=== PATIENT | female | born 1985 | race Two or more races ===

== ENCOUNTER 2019-03-25 01:46 | Emergency (ER) | payer MEDICAID ==
[~2019-03-25] VITALS: Ht 157.5 cm; Wt 105.2 kg
[2019-03-25] MEDS ORDERED: ONDANSETRON HCL 4 MG/2 ML VIAL IV ONE (02:15)
[2019-03-25] MEDS ORDERED: MORPHINE SULFATE 4 MG/ML SYR/VIAL IV ONE (02:15)
[2019-03-25 02:37] LABS: Basophils # (auto) 0.1 uL; Basophils % (auto) 0.7 % (0.0-2.0); Eosinophils # (auto) 0.2 uL; Eosinophils % (auto) 2.4 % (0.0-7.0); Hematocrit 37.5 % (36.0-46.0); Hemoglobin 12.6 g/dL (12.2-16.2); Lymphocytes % (auto) 41.5 % (10.0-50.0); Mean Corpuscular Hemoglobin 30.4 pg (28.0-32.0); Mean Corpuscular Hgb Conc. 33.7 g/dL (32.0-36.0); Mean Corpuscular Volume 90.2 fL (80.0-100.0); Monocytes # (auto) 0.7 uL; Neutrophils # (auto) 4.6 uL; Neutrophils % (auto) 48.4 % (37.0-80.0); Nucleated Red Blood Cells % 0.1 %; Platelet Count (auto) 237 10^3/uL (140-450); Red Blood Cells 4.15 10^6/uL (4.0-5.20); Red Cell Distribution Width 13.6 % (11.8-14.3); White Blood Cell 9.5 10^3/uL (4.4-10.8)
[2019-03-25 02:59] LABS: Albumin 3.2 g/dL (3.4-5.0); Calcium 8.7 mg/dL (8.5-10.1); Potassium 3.4 mmol/L (3.5-5.1)
[2019-03-25] MEDS ORDERED: MORPHINE SULF INJ 2 MG/ML SYRINGE 1ML IV ONE (03:00)
[2019-03-25 03:01] LABS: BUN/Creatinine Ratio 16.7
[2019-03-25 03:04] LABS: Bilirubin, Total 0.2 mg/dL (0.2-1.0)
[2019-03-25] MEDS ORDERED: SODIUM CHLORIDE 0.9% 1,000 ML IV ONE (03:15)
[2019-03-25 07:30] VITALS: BP 148/99
== END 2019-03-25 07:47 | disposition home or self-care (01) ==
LOC: ER 01:50
DX: O36.4XX0 Maternal care for intrauterine death, not applicable or unspecified (principal); O20.8 Other hemorrhage in early pregnancy; Z3A.08 8 weeks gestation of pregnancy
CPT/HCPCS: 36415; 76801; 80053; 84702; 85025; 96374; 96375; 99284; J2270; J2405; J7030

== ENCOUNTER 2023-01-27 19:51 | Inpatient (IN) | payer MEDICAID ==
[~2023-01-27] VITALS: Ht 157.5 cm; Wt 104.7 kg
[2023-01-27 21:17] LABS: Basophils # (auto) 0 10 ^3/uL (0-0.2); Basophils % (auto) 0.5 % (0.0-2.0); Eosinophils # (auto) 0.2 10 ^3/uL (0-0.8); Eosinophils % (auto) 2.3 % (0.0-7.0); Hematocrit 37.8 % (36.0-46.0); Mean Corpuscular Hemoglobin 30.5 pg (28.0-32.0); Mean Corpuscular Hgb Conc. 34.3 g/dL (32.0-36.0); Mean Corpuscular Volume 88.8 fL (80.0-100.0); Monocytes # (auto) 0.7 10 ^3/uL (0-1.3); Monocytes % (auto) 7.5 % (0.0-12.0); Neutrophils # (auto) 5.4 10 ^3/uL (1.6-8.6); Neutrophils % (auto) 57.7 % (37.0-80.0); Red Blood Cells 4.25 10^6/uL (4.0-5.20); Red Cell Distribution Width 13.2 % (11.8-14.3); White Blood Cell 9.4 10^3/uL (4.4-10.8)
[2023-01-27 21:24] LABS: Urine Bacteria NONE SEEN /hpf (None Seen); Urine Blood Negative /uL (Negative); Urine Specific Gravity 1.016 (1.001-1.035); Urine WBC 1 /hpf (0 - 5)
[2023-01-27 21:30] LABS: Albumin 3.5 g/dL (3.4-5.0); Calcium 9.1 mg/dL (8.5-10.1); Potassium 3.6 mmol/L (3.5-5.1)
[2023-01-27 21:33] LABS: BUN/Creatinine Ratio 19.7 (10.0-20.0); Bilirubin, Total 0.2 mg/dL (0.2-1.0); Total Protein 7.7 g/dL (6.4-8.2)
[2023-01-27] MEDS ORDERED: PIPERACILLIN-TAZOB 3.375GM 100 ML IV ONE (21:45)
[2023-01-27] MEDS ORDERED: fentaNYL CITRATE 100 MCG/2 ML VL IV ONE (22:00)
[2023-01-27] MEDS ORDERED: LABE200T6 PO (22:51)
[2023-01-27] MEDS ORDERED: DEXTROSE (50%) 50ML SYRG IV PRN (23:00)
[2023-01-27 23:41] LABS: INR 0.94 (0.9-1.15)
[2023-01-28] MEDS: LACTATED RINGER'S 1,000 ML IV SCH ×3 (02:05→19:00)
[2023-01-28 02:13] VITALS: BP 126/80
[2023-01-28 02:21] VITALS: BP 126/80
[2023-01-28] MEDS: ACCU-CHEK COMFORT CURVE STRIP VI SCH ×4 (02:38→18:00)
[2023-01-28 05:00] VITALS: BP 136/71
[2023-01-28] MEDS: metroNIDAZOLE 500MG/100ML 100 ML IV SCH ×3 (05:28→21:49)
[2023-01-28] MEDS: InsuLIN REG 1unit/0.01ml Soln (100units/ml) SC SCH ×4 (05:28→18:00)
[2023-01-28 05:32] LABS: Basophils # (auto) 0.1 10 ^3/uL (0-0.2); Basophils % (auto) 1.2 % (0.0-2.0); Eosinophils # (auto) 0.2 10 ^3/uL (0-0.8); Eosinophils % (auto) 2.6 % (0.0-7.0); Hematocrit 39.7 % (36.0-46.0); Hemoglobin 13.4 g/dL (12.2-16.2); Lymphocytes # (auto) 2.9 10 ^3/uL (0.4-5.4); Mean Corpuscular Hemoglobin 30.4 pg (28.0-32.0); Mean Corpuscular Hgb Conc. 33.7 g/dL (32.0-36.0); Mean Corpuscular Volume 90.3 fL (80.0-100.0); Monocytes # (auto) 0.5 10 ^3/uL (0-1.3); Monocytes % (auto) 6.6 % (0.0-12.0); Neutrophils # (auto) 3.9 10 ^3/uL (1.6-8.6); Neutrophils % (auto) 51.6 % (37.0-80.0); Nucleated Red Blood Cells % 0.1 %; Red Cell Distribution Width 13.2 % (11.8-14.3); White Blood Cell 7.6 10^3/uL (4.4-10.8)
[2023-01-28 05:50] LABS: Albumin 3.7 g/dL (3.4-5.0); Calcium 8.5 mg/dL (8.5-10.1); Potassium 3.6 mmol/L (3.5-5.1)
[2023-01-28 05:56] LABS: BUN/Creatinine Ratio 21.4 (10.0-20.0); Bilirubin, Total 0.3 mg/dL (0.2-1.0); Total Protein 6.7 g/dL (6.4-8.2)
[2023-01-28 09:00] VITALS: BP 108/46
[2023-01-28] MEDS ORDERED: SUCCINYLCHOLINE CHLORIDE 20 MG/ML 10ML VIAL IV ONE (09:26)
[2023-01-28] MEDS ORDERED: BUPIVACAINE 0.25% INJ 50ML VIAL ONE (09:26)
[2023-01-28] MEDS ORDERED: LIDOCAINE 2% JELLY 11ml (GLYDO) ONE (09:27)
[2023-01-28] MEDS: PANTOPRAZOLE 40 MG/10 ML VIAL INJ IV SCH (10:00)
[2023-01-28] MEDS: LABETALOL HCL 200 MG TAB PO SCH ×2 (10:00→22:00)
[2023-01-28] MEDS ORDERED: fentaNYL CITRATE 100 MCG/2 ML VL ONE (10:14)
[2023-01-28] MEDS ORDERED: MIDAZOLAM HCL 2MG/2ML 2ml VIAL (1mg/ml) ONE (10:14)
[2023-01-28] MEDS ORDERED: MEPERIDINE HCL (50 MG/ML) 1 ML VIAL ONE (10:15)
[2023-01-28] MEDS ORDERED: ONDANSETRON HCL 4 MG/2 ML VIAL IV PRN (10:45)
[2023-01-28] MEDS ORDERED: MORPHINE SULFATE 4 MG/ML SYR/VIAL IV PRN (10:45)
[2023-01-28] MEDS ORDERED: LABETALOL HCL 5 MG/ML 4ML SYRINGE IV PRN (10:45)
[2023-01-28] MEDS ORDERED: MIDAZOLAM HCL 2MG/2ML 2ml VIAL (1mg/ml) IV PRN (10:45)
[2023-01-28] MEDS ORDERED: ePHEDrine SULFATE 50 MG/ML AMP IV PRN (10:45)
[2023-01-28] MEDS ORDERED: DexAMETHasone SOD PHOS 10MG/1ML VIAL INJ ONE (11:29)
[2023-01-28] MEDS ORDERED: PROPOFOL 10 MG/ML 20 ML IV ONE (11:29)
[2023-01-28] MEDS ORDERED: SUGAMMADEX 200mg/2ml Vial (100MG/ML) IV ONE (11:45)
[2023-01-28] MEDS: HYDROmorphone HCL 2 MG/ML VL/or syr IV PRN ×3 (12:13→13:00)
[2023-01-28] MEDS ORDERED: cefTRIAXone 1GM/50ML D5W 50 ML IV ONE (14:00)
[2023-01-28] MEDS: MORPHINE SULFATE INJ 2 MG/ml SYRG IV PRN ×2 (15:43→21:25)
[2023-01-28 16:35] VITALS: BP 110/66
[2023-01-28 22:00] VITALS: BP 139/75
[2023-01-29] MEDS: ACCU-CHEK COMFORT CURVE STRIP VI SCH ×3 (00:19→11:42)
[2023-01-29] MEDS: InsuLIN REG 1unit/0.01ml Soln (100units/ml) SC SCH ×3 (00:20→11:43)
[2023-01-29 05:00] VITALS: BP 119/65
[2023-01-29] MEDS: LACTATED RINGER'S 1,000 ML IV SCH (05:00)
[2023-01-29] MEDS: metroNIDAZOLE 500MG/100ML 100 ML IV SCH ×2 (05:33→13:30)
[2023-01-29] MEDS: MORPHINE SULFATE INJ 2 MG/ml SYRG IV PRN ×2 (05:49→12:48)
[2023-01-29 09:00] VITALS: BP 122/79
[2023-01-29] MEDS ORDERED: cefTRIAXone 1GM/50ML D5W 50 ML IV SCH (09:00)
[2023-01-29] MEDS: PANTOPRAZOLE 40 MG/10 ML VIAL INJ IV SCH (09:45)
[2023-01-29] MEDS: LABETALOL HCL 200 MG TAB PO SCH (09:45)
[2023-01-29] MEDS ORDERED: MET500T PO (10:54)
[2023-01-29] MEDS ORDERED: HYDR2TAB58 PO (10:54)
[2023-01-29] MEDS ORDERED: LEVO500T91 PO (10:54)
[2023-01-29 13:00] VITALS: BP 122/71
[2023-01-29 14:26] VITALS: BP 122/71
== END 2023-01-29 16:06 | disposition home or self-care (01) | DRG 234 ==
LOC: ER 19:55 → OVERFLOW 22:51 → WEST WING 01-28 01:40
PROVIDERS: ADMIT Nurse Practitioner Family; ATTEND Family Medicine
PROC: 0DTJ4ZZ Resection of Appendix, Percutaneous Endoscopic Approach (ICD-10-PCS; principal; 2023-01-28 10:45)
DX: K35.80 Unspecified acute appendicitis (principal); E11.9 Type 2 diabetes mellitus without complications; E66.01 Morbid (severe) obesity due to excess calories; N20.0 Calculus of kidney; I10 Essential (primary) hypertension; K38.1 Appendicular concretions; N83.209 Unspecified ovarian cyst, unspecified side; E86.0 Dehydration; Z82.49 Family history of ischemic heart disease and other diseases of the circulatory system; Z83.3 Family history of diabetes mellitus; Z88.6 Allergy status to analgesic agent; Z91.199 Patient's noncompliance with other medical treatment and regimen due to unspecified reason; Z71.3 Dietary counseling and surveillance; Z68.41 Body mass index [BMI] 40.0-44.9, adult
CPT/HCPCS: 36415; 74176; 76830; 76856; 80053; 81001; 81025; 82962; 83036; 83690; 84443; 85025; 85610; 85730; C9113; G0378; J0330; J0696; J1100; J1815; J2250; J2405; J2543; J2704; J3490; J7060

== ENCOUNTER 2024-10-07 07:46 | Emergency (ER) | payer MEDICAID ==
[~2024-10-07] VITALS: Ht 157.5 cm; Wt 95.1 kg
[~2024-10-07 07:46] MED LIST: HYDR2TAB58 PO; LABE200T10 PO; LEVO500T91 PO; MET500T PO
[2024-10-07 08:40] VITALS: BP 136/86; PULSE 91; RESP 18; TEMP 98.3; O2SAT 98
[2024-10-07 08:58] LABS: Urine Bacteria None Seen /hpf (None Seen)
--- NOTE | 2024-10-07 09:08 | ED.PDOC ---
GI ASSESSMENT HPI Comments A 38 YEAR OLD FEMALE PRESENTS TO THE ED WITH COMPLAINT OF RUQ ABDOMINAL PAIN. PATIENT STATES SHE HAS BEEN EXPERIENCING RIGHT UPPER QUADRANT ABDOMINAL PAIN OFF AND ON SINCE YESTERDAY. PATIENT NOTES THERE IS A POSSIBILITY OF DUE TO HER LAST MENSTRUAL PERIOD BEING 08/27/2024. PATIENT DENIES FEVER, CHILLS, SHORTNESS OF BREATH, CHEST PAIN, NAUSEA, VOMITING, HEADACHE, OR OTHER COMPLAINTS. NO OTHER SYMPTOMS OR MODIFYING FACTORS AT THIS TIME. PATIENT IS ALERT, ORIENTED X 4, AND HAS STEADY GAIT. Chief Complaint: Abdominal Pain Time Seen by MD: 08:02 Primary Care Provider: [facility] Reviewed Notes: Nurses Notes, Medications, Allergies Allergies: Coded Allergies: Acetaminophen (Verified Allergy, Unknown, 01/27/23) Aspirin (Verified Allergy, Unknown, 01/27/23) Ibuprofen (Unverified Adverse Reaction, Severe, SWELLING TO FACE, HIVES, 05/07/11) Home Meds Active Scripts Hydromorphone Hcl (Dilaudid) 2 Mg Tab, 1 TAB PO TID PRN, #20 TAB Prov:BRYAN GARDNER MD 01/29/23 Levofloxacin Hemihydrate (LEVAQUIN 500 MG) 500 Mg Tab, 1 TAB PO DAILY, #7 TAB Prov:BRYAN GARDNER MD 01/29/23 Metronidazole (Metronidazole) 500 Mg Tab, 500 MG PO TID, #21 TAB Prov:BRYAN GARDNER MD 01/29/23 Reported Medications Labetalol HCl (Labetalol HCl) 200 Mg Tab, 1 TAB PO BID 01/27/23 Information Source: Patient Mode of Arrival: Ambulatory Timing: Days Duration: Intermittent, Days Prehospital treatment: None Quality: Aching, Cramping Vomitus: None Stool: Normal Severity: Moderate Recent: None Recent Hx of: None Pain Location: RUQ Modifying Factors: Nothing Associated sign and symptoms: Abdominal Pain Past Medical History PAST MEDICAL HISTORY: Denies Surgical History: Appendectomy, RATING CLERK History: No Pertinent RATING CLERK History Family History Family History: Reviewed,noncontributory to illness, No family hx of DM Social History Smoker: Non-Smoker Alcohol: Denies ETOH Use Drugs: Denies Drug Use Lives In: Home Constitutional: denies: chills, diaphoresis, fatigue, fever, malaise, sweats, weakness, others EENTM: denies: blurred vision, double vision, ear bleeding, ear discharge, ear drainage, ear pain, ear ringing, eye pain, eye redness, hearing loss, mouth pain, mouth swelling, nasal discharge, nose bleeding, nose congestion, nose pain, photophobia, tearing, throat pain, throat swelling, voice changes, others Respiratory: denies: cough, hemoptysis, orthopnea, SOB at rest, shortness of breath, SOB with excertion, stridor, wheezing, others Cardiovascular: denies: chest pain, dizzy spells, diaphoresis, Dyspnea on exertion, edema, irregular heart beat, left arm pain, lightheadedness, palpitations, PND, syncope, others Gastrointestinal: reports: abdominal pain (RUQ ABDOMINAL PAIN); denies: abdomen distended, blood streaked bowels, constipated, diarrhea, dysphagia, difficulty s wallowing, hematemesis, melena, nausea, poor appetite, poor fluid intake, rectal bleeding, rectal pain, vomiting, others Genitourinary: denies: abnormal vagina bleeding, burning, dyspareunia, dysuria, flank pain, frequency, hematuria, incontinence, pain, , vagina discharge, urgency, others Neurological: denies: dizziness, fainting, headache, left sided numbness, left sided weakness, numbness, paresthesia, pre-existing deficit, right sided numbness, right sided weakness, seizure, speech problems, tingling, tremors, weakness, others Musculoskeletal: denies: back pain, gout, joint pain, joint swelling, muscle pain, muscle stiffness, neck pain, others Integumetry: denies: bruises, change in color, change in hair/nails, dryness, laceration, lesions, lumps, rash, wounds, others Allergic/Immunocompromised: denies: Difficulty Healing, Frequent Infections, Hives, Itching, others Hematologic/Lymphatic: denies: anemia, blood clots, easy bleeding, easy bruising, swollen glands, others Endocrine: denies: excessive hunger, excessive sweating, excessive thirst, excessive urination, flushing, intolerance to cold, intolerance to heat, unexplained weight gain, unexplained weight loss, others Psychiatric: denies: anxiety, bipolar disorder, depression, hopeless, panic disorder, schizophrenia, sleepless, suicidal, others All Other Systems: Reviewed and Negative Physical Exam General Appearance: Obese HEENT: Normal ENT Inspection, PERRL/EOMI, Pharynx Normal, TMs Normal Neck: Full Range of Motion, Non-Tender, Normal, Normal Inspection Respiratory: Chest Non-Tender, Lungs Clear, No Accessory Muscle Use, No Resp iratory Distress, Normal Breath Sounds Cardiovascular: No Edema, No JVD, No Murmur, No Gallop, Normal Peripheral Pulses, Regular Rate/Rhythm Breast Exam: Deferred Gastrointestinal: No Organomegaly, No Pulsatile Mass, Normal Bowel Sounds, RUQ, Soft, Tenderness (RIGHT UPPER AND MIDDLE ABD, NO GUARDING AND REBOUND TENDE RNESS. ) Genitalia: Deferred Pelvic: Deferred Rectal: Deferred Extremities: No calf tenderness, Normal capillary refill, Normal inspection, Normal range of motion, Non-tender, No pedal edema Musculoskeletal : Apperance: Normal Neurologic: Alert, textile science technician II-XII nml as Tested, No Motor Deficits, Normal Affect, Normal Mood, No Sensory Deficits Cerebellar Function: Normal Reflexes: Normal Skin: Dry, Normal Color, Warm Peripheral Pulses: 2+ carotid (R), 2+ carotid (L) Lymphatic: No Adenopathy Was a procedure done? Was a procedure done?: No GI differential Dx Differential Diagnosis: Cholecystitis, Constipation, Gastritis/PUD, Gastroenteritis, Hepatitis, UTI, , Kidney Stone X-Ray, Labs, Meds, VS Vital Signs Date Time Temp Pulse Resp B/P (MAP) Pulse Ox O2 Delivery O2 Flow Rate FiO2 10/07/24 08:40 98.3 136 86 136/86 (103) 98 98.3 10/07/24 08:40 91 18 98 Room Air 10/07/24 08:17 98.3 91 18 136/86 (103) 98 Lab Test 10/07/24 08:41 10/07/24 08:30 10/07/24 08:12 Range/Units Urine Color Yellow Yellow Urine Clarity Clear Clear Urine pH 5.5 5.0-9.0 Urine Specific [place] 1.021 1.001-1.035 Urine Protein Negative Negative Urine Ketones Trace Negative Urine Blood Negative Negative /uL Urine Nitrite Negative Negative Urine Bilirubin Negative Negative Urine Urobilinogen Normal Negative mg/dL Urine Leukocyte Esterase Negative Negative /uL Urine RBC 2 0 - 4 /hpf Urine Microscopic WBC 1 0-5 /HPF Urine Squamous Epithelial Cells Few <5 /hpf Urine Bacteria None seen None Seen /hpf Urine Mucus Few None Seen Urine Glucose Normal Normal mg/dL Urine Test Positive Negative White Blood Count 7.8 4.4-10.8 10^3/uL Red Blood Count 4.53 4.0-5.20 10^6/uL Hemoglobin 13.7 12.2-16.2 g/dL Hematocrit 40.1 36.0-46.0 % Mean Corpuscular Volume 88.4 80.0-100.0 fL Mean Corpuscular Hemoglobin 30.2 28.0-32.0 pg Mean Corpuscular Hemoglobin Concent 34.1 32.0-36.0 g/dL Red Cell Distribution Width 14.5 H 11.8-14.3 % Platelet Count 259 140-450 10^3/uL Mean Platelet Volume 8.5 6.9-10.8 fL Neutrophils (%) (Auto) 66.4 37.0-80.0 % Lymphocytes (%) (Auto) 26.0 10.0-50.0 % Monocytes (%) (Auto) 5.9 0.0-12.0 % Eosinophils (%) (Auto) 1.3 0.0-7.0 % Basophils (%) (Auto) 0.4 0.0-2.0 % Neutrophils # (Auto) 5.2 1.6-8.6 10 ^3/uL Lymphocytes # (Auto) 2.0 0.4-5.4 10 ^3/uL Monocytes # (Auto) 0.5 0-1.3 10 ^3/uL Eosinophils # (Auto) 0.1 0-0.8 10 ^3/uL Basophils # (Auto) 0 0-0.2 10 ^3/uL Nucleated Red Blood Cells 0.1 % Sodium Level 137 136-145 mmol/L Potassium Level 3.8 3.5-5.1 mmol/L Chloride Level 103 98-107 mmol/L Carbon Dioxide Level 24 20-31 mmol/L Anion Gap 10 5-15 Blood Urea Nitrogen 10 9-23 mg/dL Creatinine 0.76 0.550-1.02 mg/dL Glomerular Filtration Rate Calc 102 >90 mL/min BUN/Creatinine Ratio 13.2 10.0-20.0 Serum Glucose 131 H 74-106 mg/dL Calcium Level 10.3 8.7-10.4 mg/dL Total Bilirubin 0.4 0.2-1.0 mg/dL Aspartate Amino Transferase (AST) 14 13-40 U/L Alanine Aminotransferase (ALT) 14 7-40 U/L Alkaline Phosphatase 93 46-116 U/L Total Protein 7.8 5.7-8.2 g/dL Albumin 4.8 3.2-4.8 g/dL Lipase 78 H 12-53 U/L Beta HCG, Quantitative 7575.3 H 1.5-4.2 mIU/mL POC Glucose 140 H 70-106 mg/dl EXAM: US Abdomen Limited, Right Upper Quadrant CLINICAL INDICATION: RIGHT UPPER ABD PAIN TECHNIQUE: Real-time ultrasound of the right upper quadrant with image documentation. COMPARISON: None FINDINGS: LIVER: Liver measures 17.6 cm. GALLBLADDER: Negative Villarreal's sign was reported by the block splitter operator. No gallstones. COMMON BILE DUCT: CBD not visualized. PANCREAS: Unremarkable as visualized. RIGHT KIDNEY: Echogenic kidney fatty liver. Right kidney measures up to 11.1 cm. No stones. No hydronephrosis. OTHER FINDINGS: . . IMPRESSION: No acute findings in the right upper quadrant. ATED BY: CHERRY PEREZ MD DICTATED DATE/TIME: 10/07/24 1025 SIGNED BY: CHERRY PEREZ MD SIGNED DATE/TIME: 10/07/24 1025 CC: CLINICAL HISTORY: Pain. COMPARISON: Pelvic ultrasound dated 01/28/2023. TECHNIQUE: Transabdominal grayscale sonographic imaging of the uterus and ovaries was performed, assisted by color Doppler technique. Duplex Doppler ultrasound of both ovaries was also performed. Patient refused transvaginal examination. FINDINGS: The uterus measures 9.3 x 6.9 x 7.3 cm. There is an intrauterine gestational sac and yolk sac. No pole identified at this time. Gestational sac diameter measures 1.04 cm, corresponding to an estimated gestational age of 5 weeks 1 day. Right ovary is not visualized. Left ovary measures 2.2 x 2.2 x 2.1 cm. Arterial and venous blood flow demonstrated. IMPRESSION: Intrauterine gestational sac with yolk sac identified. No pole visualized at this time, likely due to early gestational age. Gestational age is 5 weeks 1 day based on gestational sac diameter correlate with clinical findings, serial beta HCG levels, and follow-up ultrasound. ATED BY: FAREED RAYMUNDO DO DICTATED DATE/TIME: 10/07/24 1029 SIGNED BY: FAREED RAYMUNDO DO SIGNED DATE/TIME: 10/07/24 1029 CC: X-Ray, Labs, Meds, VS Comment EXTERNAL MEDICAL RECORDS REVIEWED: [NONE] INDEPENDENT HISTORIANS: [NONE] SOCIAL DETERMINANTS OF HEALTH: [NONE] LABS ORDERED: CBC, CMP, UA, URINE , LIPASE, BETA HCG QUANT REVIEWED AND INTERPRETED RESULTS: URINE POSITIVE, BETA HCG QUANT 7575.3 IMAGING ORDERED: US ABDOMEN, US OB < 14 WKS TREATMENTS ORDERED: NONE PROCEDURES PERFORMED: NONE CRITICAL CARE TIME: NONE I HAVE DISCUSSED THE PATIENT WITH THE ATTENDING PHYSICIAN DR. HAUSER AND HE AGREES WITH THE PATIENT'S PLAN OF CARE AND DISPOSITION. BASED ON HISTORY OF PRESENT ILLNESS, AND PHYSICAL EXAM, PATIENT WILL BE DISCHARGED HOME. SHARED DECISION MAKING: PATIENT INSTRUCTED TO FOLLOW UP WITH PRIMARY CARE PROVIDER IN 1-2 DAYS FOR RE-EVALUATION OF SYMPTOMS. PATIENT VERBALIZES UNDERSTANDING TO RETURN TO ED FOR NEW OR WORSENING SYMPTOMS OR IF FOLLOW UP WITH PCP CANNOT BE OBTAINED. PATIENT FEELS COMFORTABLE GOING HOME AT THIS TIME. ALL QUESTIONS ADDRESSED AT TIME OF DISCHARGE. Images Reviewed?: Images reviewed and evaluated by me Time of 1ST Reevaluation: 10:46 Reevaluation 1ST: Improved Patient Education/Counseling: Diagnosis, Treatment, Need For Follow Up Family Education/Counseling: Diagnosis, Treatment, Need For Follow Up Medical Screening: No EMC Exist At This Time Departure 1 Departure Time of Disposition: 10:46 Impression: Primary Impression: Hepatic steatosis Additional Impression: First trimester Disposition: HOME / SELF CARE / HOMELESS Condition: Stable Additional Instructions: FOLLOW-UP WITH PCP AND PIGGERY WORKER IN 1 TO 2 DAYS. TAKE MEDICATIONS PRESCRIBED. RETURN TO ED FOR ANY NEW OR WORSENING SYMPTOMS. e-Prescriptions Acetaminophen (Tylenol Extra Strength Fo) 500 Mg Tab 1000 MG PO BID, #30 TAB Prov: KEON MENDEZ 10/07/24 Discharged With: Self Critical Care Note Critical Care Time?: No Stability Stability form required: No I personally scribed for KEON MENDEZ ([email or web address]) on 10/07/24 at 09:08. Electronically submitted by Lobo Sawyer ([email or web address]). I personally scribed for KEON MENDEZ ([email or web address]) on 10/07/24 at 10:32. Electronically submitted by Lobo Sawyer ([email or web address]). I personally scribed for KEON MENDEZ ([email or web address]) on 10/07/24 at 10:35. Electronically submitted by Lobo Sawyer ([email or web address]). KEON MENDEZ Oct 07, 2024 09:08
[2024-10-07 09:19] LABS: Urine Blood Negative /uL (Negative); Urine Clarity Clear (Clear); Urine Color Yellow (Yellow); Urine Mucus FEW (None Seen); Urine Protein, UAD Negative (Negative); Urine Specific Gravity 1.021 (1.001-1.035); Urine Squamous Epithelial Cell FEW /hpf (<5); Urine Urobilinogen Normal (Negative); Urine WBC 1 /HPF (0-5); Urine pH 5.5 (5.0-9.0)
[2024-10-07 09:20] LABS: Basophils # (auto) 0 10 ^3/uL (0-0.2); Basophils % (auto) 0.4 % (0.0-2.0); Eosinophils # (auto) 0.1 10 ^3/uL (0-0.8); Eosinophils % (auto) 1.3 % (0.0-7.0); Hematocrit 40.1 % (36.0-46.0); Hemoglobin 13.7 g/dL (12.2-16.2); Mean Corpuscular Hemoglobin 30.2 pg (28.0-32.0); Mean Corpuscular Hgb Conc. 34.1 g/dL (32.0-36.0); Mean Corpuscular Volume 88.4 fL (80.0-100.0); Monocytes # (auto) 0.5 10 ^3/uL (0-1.3); Monocytes % (auto) 5.9 % (0.0-12.0); Neutrophils # (auto) 5.2 10 ^3/uL (1.6-8.6); Neutrophils % (auto) 66.4 % (37.0-80.0); Nucleated Red Blood Cells % 0.1 %; Platelet Count (auto) 259 10^3/uL (140-450); Red Blood Cells 4.53 10^6/uL (4.0-5.20); Red Cell Distribution Width 14.5 % (11.8-14.3); White Blood Cell 7.8 10^3/uL (4.4-10.8)
[2024-10-07 09:41] LABS: Alanine Aminotransferase 14 U/L (7-40); Alkaline Phosphatase 93 U/L (46-116); Anion Gap 10 (5-15); Aspartate Aminotransferase 14 U/L (13-40); BUN/Creatinine Ratio 13.2 (10.0-20.0); Blood Urea Nitrogen 10 mg/dL (9-23); Calcium 10.3 mg/dL (8.7-10.4); Carbon Dioxide 24 mmol/L (20-31); Chloride 103 mmol/L (98-107); Potassium 3.8 mmol/L (3.5-5.1); Sodium 137 mmol/L (136-145); Total Protein 7.8 g/dL (5.7-8.2)
[2024-10-07 09:42] LABS: Bilirubin, Total 0.4 mg/dL (0.2-1.0)
[2024-10-07 09:45] LABS: Albumin 4.8 g/dL (3.2-4.8); Glucose 131 mg/dL (74-106)
--- NOTE | 2024-10-07 10:27 | DVH ---
EXAM: US Abdomen Limited, Right Upper Quadrant CLINICAL INDICATION: RIGHT UPPER ABD PAIN TECHNIQUE: Real-time ultrasound of the right upper quadrant with image documentation. COMPARISON: None FINDINGS: LIVER: Liver measures 17.6 cm. GALLBLADDER: Negative Villarreal's sign was reported by the thermal cutter hand. No gallstones. COMMON BILE DUCT: CBD not visualized. PANCREAS: Unremarkable as visualized. RIGHT KIDNEY: Echogenic kidney fatty liver. Right kidney measures up to 11.1 cm. No stones. No h ydronephrosis. OTHER FINDINGS: . . IMPRESSION: No acute findings in the right upper quadrant.
[2024-10-07] MEDS ORDERED: ACETAMINOPHEN 325 MG TAB PO ONE (10:30)
--- NOTE | 2024-10-07 10:31 | DVH ---
CLINICAL HISTORY: Pain. COMPARISON: Pelvic ultrasound dated 01/28/2023. TECHNIQUE: Transabdominal grayscale sonographic imaging of the uterus and ovaries was performed, assi sted by color Doppler technique. Duplex Doppler ultrasound of both ovaries was also performed. Patien t refused transvaginal examination. FINDINGS: The uterus measures 9.3 x 6.9 x 7.3 cm. There is an intrauterine gestational sac and yolk s ac. No pole identified at this time. Gestational sac diameter measures 1.04 cm, corresponding t o an estimated gestational age of 5 weeks 1 day. Right ovary is not visualized. Left ovary measures 2.2 x 2.2 x 2.1 cm. Arterial and venous blood flow demonstrated. IMPRESSION: Intrauterine gestational sac with yolk sac identified. No pole visualized at this time, likely due to early gestational age. Gestational age is 5 weeks 1 day based on gestational sac diameter henry elate with clinical findings, serial beta HCG levels, and follow-up ultrasound.
[2024-10-07 10:34] LABS: Lipase 78 U/L (12-53)
[2024-10-07] MEDS ORDERED: ACET-1304 PO (10:42)
== END 2024-10-07 10:46 | disposition home or self-care (01) ==
LOC: ER 07:46
DX: O26.611 Liver and biliary tract disorders in pregnancy, first trimester (principal); R10.2 Pelvic and perineal pain; K76.0 Fatty (change of) liver, not elsewhere classified; Z3A.01 Less than 8 weeks gestation of pregnancy; Z79.899 Other long term (current) drug therapy; Z88.6 Allergy status to analgesic agent; Z90.49 Acquired absence of other specified parts of digestive tract
CPT/HCPCS: 36415; 76705; 76801; 80053; 81001; 81025; 82962; 83690; 84702; 85025